=== PATIENT | female | born 1985 | race Two or more races ===

== ENCOUNTER 2020-08-23 01:41 | Emergency (ER) | payer OTHER ==
[~2020-08-23] VITALS: Ht 154.9 cm; Wt 53.5 kg
[2020-08-23] MEDS ORDERED: PHENERGAN25 MG PO (08:19)
[2020-08-23] MEDS ORDERED: LEVSIN/SL0.125 MG SL (08:19)
[2020-08-23] MEDS ORDERED: PEPCID40 MG PO (08:19)
[2020-08-23] MEDS ORDERED: INTESTINEX680 M2 PO (08:19)
== END 2020-08-23 08:47 | disposition home or self-care (01) ==
LOC: ER 01:41
DX: K52.9 Noninfective gastroenteritis and colitis, unspecified (principal)

== ENCOUNTER 2022-08-30 21:47 | Emergency (ER) | payer OTHER ==
[~2022-08-30] VITALS: Ht 154.9 cm; Wt 49.9 kg
[~2022-08-30 21:47] MED LIST: INTESTINEX680 M2 PO; LEVSIN/SL0.125 MG SL; PEPCID40 MG PO; PHENERGAN25 MG PO
[2022-08-30] MEDS ORDERED: ANTIVERT25 M2 (22:04)
[2022-08-30] MEDS ORDERED: BUTALBIT-ACETA1 EACH PO (22:07)
== END 2022-08-31 02:59 | disposition home or self-care (01) ==
LOC: ER 21:47
DX: K29.00 Acute gastritis without bleeding (principal); R53.81 Other malaise; Z20.822 Contact with and (suspected) exposure to COVID-19

== ENCOUNTER 2022-09-03 16:42 | Emergency (ER) | payer OTHER ==
[~2022-09-03] VITALS: Ht 154.9 cm; Wt 49.9 kg
[~2022-09-03 16:42] MED LIST changes: +ANTIVERT25 M2; +BUTALBIT-ACETA1 EACH PO
[2022-09-04] MEDS ORDERED: PEPCID40 MG PO (02:37)
[2022-09-04] MEDS ORDERED: LEVSIN/SL0.125 MG SL (02:37)
[2022-09-04] MEDS ORDERED: ONDANSETRON ODT4 MG PO (02:37)
[2022-09-04] MEDS ORDERED: INTESTINEX680 M1 PO (02:37)
== END 2022-09-04 02:47 ==
LOC: ER 16:42
DX: K52.89 Other specified noninfective gastroenteritis and colitis (principal); Z91.013 Allergy to seafood

== ENCOUNTER 2022-10-01 08:25 | Outpatient (CLI) | payer OTHER ==
[~2022-10-01 08:25] MED LIST changes: +INTESTINEX680 M1 PO; +ONDANSETRON ODT4 MG PO
== END 2022-10-01 08:31 | disposition home or self-care (01) ==
LOC: SONOGRAMA 08:25
DX: R10.13 Epigastric pain (principal)

== ENCOUNTER 2023-03-26 20:46 | Emergency (ER) | payer OTHER ==
[~2023-03-26] VITALS: Ht 154.9 cm; Wt 68.0 kg
[2023-03-26] MEDS ORDERED: SYNTHROID100 MCG PO (21:18)
[2023-03-26] MEDS ORDERED: CEFAZOLIN SODIUM 1,000 MG VIAL IM STA (21:39)
[2023-03-26] MEDS ORDERED: TETANUS & DIPHTHERIA TOX,ADULT 0.5 ML VIAL IM STA (21:39)
== END 2023-03-26 22:20 | disposition home or self-care (01) ==
LOC: ER 20:46
DX: S61.217A Laceration without foreign body of left little finger without damage to nail, initial encounter (principal); W45.8XXA Other foreign body or object entering through skin, initial encounter; Y93.89 Activity, other specified; Y92.89 Other specified places as the place of occurrence of the external cause; Y99.9 Unspecified external cause status; Z91.013 Allergy to seafood

== ENCOUNTER 2023-04-14 09:33 | Emergency (ER) | payer OTHER ==
[~2023-04-14] VITALS: Ht 154.9 cm; Wt 67.1 kg
[~2023-04-14 09:33] MED LIST changes: +SYNTHROID100 MCG PO
== END 2023-04-14 10:37 | disposition home or self-care (01) ==
LOC: ER 09:33
DX: Z48.02 Encounter for removal of sutures (principal); Z91.013 Allergy to seafood

== ENCOUNTER 2023-09-24 09:08 | Outpatient (CLI) | payer OTHER | END 2023-09-24 09:18 | disposition home or self-care (01) | LOC: SONOGRAMA 09:08 | PROVIDERS: ATTEND General Practice | DX: M25.511 Pain in right shoulder (principal) ==

== ENCOUNTER 2024-01-01 14:46 | Outpatient (CLI) | payer OTHER | END 2024-01-01 15:03 | disposition home or self-care (01) | LOC: SONOGRAMA 14:46 | PROVIDERS: ATTEND General Practice | DX: E03.9 Hypothyroidism, unspecified (principal); M25.511 Pain in right shoulder ==